=== PATIENT | male | born 1990 | race Caucasian/White ===

== ENCOUNTER → 2023-07-16 | Outpatient (CLI) | payer OTHER | LOC: M RAD 13:23 | PROVIDERS: ATTEND Physician Assistant Medical | DX: H93.A2 Pulsatile tinnitus, left ear (principal); I65.23 Occlusion and stenosis of bilateral carotid arteries ==

== ENCOUNTER → 2023-08-13 | Outpatient (CLI) | payer OTHER | LOC: M RAD 14:55 | PROVIDERS: ATTEND Physician Assistant Medical | DX: H93.A2 Pulsatile tinnitus, left ear (principal) ==